=== PATIENT | male | born 1965 | race Caucasian/White ===

== ENCOUNTER → 2024-06-08 13:37 | Outpatient (REF) | payer OTHER, SELFPAY | LOC: MRI 3T 13:37 | PROVIDERS: ATTENDING PHYSICIAN Nurse Practitioner Gerontology; FAMILY PHYSICIAN Family Medicine | DX: S43.421A Sprain of right rotator cuff capsule, initial encounter (principal); M19.011 Primary osteoarthritis, right shoulder; M75.21 Bicipital tendinitis, right shoulder; M24.411 Recurrent dislocation, right shoulder | CPT/HCPCS: 23350; 73040; 73222 ==

== ENCOUNTER → 2024-10-11 15:17 | Outpatient (REF) | payer OTHER, SELFPAY | LOC: RAD 15:17 | PROVIDERS: ATTENDING PHYSICIAN Nurse Practitioner Gerontology; FAMILY PHYSICIAN Family Medicine | DX: I82.461 Acute embolism and thrombosis of right calf muscular vein (principal) | CPT/HCPCS: 93971 ==